=== PATIENT | female | born 1945 | race Caucasian/White ===

== ENCOUNTER 2017-06-09 20:17 | Emergency (ER) | payer MEDICARE ==
[2017-06-09] MEDS ORDERED: RX INFO: IV CONTRAST WAS GIVEN 1 EACH MISC MISCELLANE PRN (20:18)
[2017-06-09] MEDS ORDERED: SODIUM CHLORIDE 0.9% 1,000 ML IV STA ×2 (20:19)
[2017-06-09] MEDS ORDERED: levETIRAcetam IV 1,500 MG in SALINE 1 100ML.BAG IVPB STA (20:38)
[2017-06-09] MEDS ORDERED: LORazepam 2 MG/ML INJ IV STA ×3 (20:39→20:52)
[2017-06-09 20:46] LABS: Basophils % (A) 0 %; Eosinophils % (A) 0 %; HCT 36.8 % (34.0-46.0); HGB 11.5 gm/dL (11.4-16.0); Hypochromasia Slight; Lymphocytes # (A) 1.4 k/uL (1.0-4.8); Lymphocytes % (A) 19 %; MCH 31.3 pg (25.0-35.0); MCHC 31.1 g/dL (31.0-37.0); MCV 100.7 fL (80.0-100.0); Macrocytosis Slight; Mean Platelet Volume 8.3; Monocytes # (A) 0.5 k/uL (0-1.0); Monocytes % (A) 7 %; Neutrophils % (A) 71 %; Platelet Count 178 k/uL (150-450); RBC 3.66 m/uL (3.80-5.40); RDW 15.1 % (11.5-15.5); WBC 7.1 k/uL (3.8-10.6)
--- NOTE | 2017-06-09 20:51 | ED ---
General Adult HPI - General Chief complaint: Altered Mental Status Stated complaint: Seixure Time Seen by Provider: 06/09/17 20:18 Source: patient, RN notes reviewed, old records reviewed Mode of arrival: ambulatory Limitations: altered mental status, physical limitation - History of Present Illness Initial comments: This is a 71-year-old female the ER for evaluation, patient's primary by EMS, patient's of poor strain secondary current clinical condition. EMS was called the patient's house for possible seizure-like activity, and activity and stopped upon her arrival to the house, he also noted the patient had elevated blood sugar at home. Patient does her from diabetes currently on steroids. Patient does have recent hospital admission status post fall. - Related Data Home Medications Medication Instructions Recorded Confirmed Insulin Glargine [Lantus] 20 unit SQ BID 06/09/17 06/09/17 Metoprolol Tartrate [Lopressor] 25 mg PO TID 06/09/17 06/09/17 glipiZIDE [Glucotrol] 5 mg PO AC-BID 06/09/17 06/09/17 predniSONE See Taper PO DAILY 06/09/17 06/09/17 Review of Systems ROS Statement: Those systems with pertinent positive or pertinent negative responses have been documented in the HPI. ROS Other: All systems not noted in ROS Statement are negative. Past Medical History Past Medical History: Unable to Obtain, Atrial Fibrillation History of Any Multi-Drug Resistant Organisms: Unobtainable Past Surgical History: Unable to Obtain Past Psychological History: Unable to Obtain Smoking Status: Unknown if ever smoked Past Alcohol Use History: Unable to Obtain Past Drug Use History: Unable to Obtain General Exam - General Exam Comments Initial Comments: Patient actively seizing, left sided, simple partial, both of sided arm face, left-sided gaze, patient remains alert moaning answering following commands Limitations: altered mental status, physical limitation General appearance: alert, in no apparent distress Head exam: Present: atraumatic, normocephalic, normal inspection Eye exam: Present: normal appearance, PERRL, EOMI. Absent: scleral icterus, conjunctival injection, periorbital swelling ENT exam: Present: normal exam, mucous membranes moist Neck exam: Present: normal inspection. Absent: tenderness, meningismus, lymphadenopathy Respiratory exam: Present: normal lung sounds bilaterally. Absent: respiratory distress, wheezes, rales, rhonchi, stridor Cardiovascular Exam: Present: regular rate, normal rhythm, normal heart sounds. Absent: systolic murmur, diastolic murmur, rubs, gallop, clicks GI/Abdominal exam: Present: soft, normal bowel sounds. Absent: distended, tenderness, guarding, rebound, rigid Extremities exam: Present: normal inspection, full ROM, normal capillary refill. Absent: tenderness, pedal edema, joint swelling, calf tenderness Back exam: Present: normal inspection Neurological exam: Present: alert, oriented X3, CN II-XII intact Psychiatric exam: Present: normal affect, normal mood Skin exam: Present: warm, dry, intact, normal color. Absent: rash Course Vital Signs 06/09/17 06/09/17 06/09/17 20:21 20:28 20:37 Temperature 97.8 F Pulse Rate 184 H 174 H 189 H Respiratory 20 22 20 Rate Blood Pressure 143/80 163/124 167/89 O2 Sat by Pulse 97 98 96 Oximetry 06/09/17 06/09/17 20:43 20:53 Temperature Pulse Rate 98 128 H Respiratory 18 18 Rate Blood Pressure 143/60 97/70 O2 Sat by Pulse 98 99 Oximetry - Reevaluation(s) Reevaluation #1: 06/09/17 20:50 Patient given first dose of Ativan, 2 mg, second was 2 mg, continuing with simple partial seizures Reevaluation #2: 06/09/17 21:10 Patient's blood pressure is labile, no room for nimotoop EKG Findings - EKG Comments: EKG Findings:: EKG shows A. fib with RVR rate 126, QRS 72, QTc 444 Medical Decision Making - Medical Decision Making 71 female presented ER with simple partial status epilepticus, patient on Keppra given Ativan, significantly sedated on Ativan with mobile her labile blood pressure, patient given fluid bolus. Patient transferred to [facility] for further evaluation and management regarding positive subarachnoid hemorrhage - Lab Data Result diagrams: 06/09/17 20:30 06/09/17 20:30 Lab Results 06/09/17 06/09/17 06/09/17 Range/Units 20:30 20:30 20:44 WBC 7.1 (3.8-10.6) k/uL RBC 3.66 L (3.80-5.40) m/uL Hgb 11.5 (11.4-16.0) gm/dL Hct 36.8 (34.0-46.0) % MCV 100.7 H (80.0-100.0) fL MCH 31.3 (25.0-35.0) pg MCHC 31.1 (31.0-37.0) g/dL RDW 15.1 (11.5-15.5) % Plt Count 178 (150-450) k/uL Neutrophils % 71 % Lymphocytes % 19 % Monocytes % 7 % Eosinophils % 0 % Basophils % 0 % Neutrophils # 5.0 (1.3-7.7) k/uL Lymphocytes # 1.4 (1.0-4.8) k/uL Monocytes # 0.5 (0-1.0) k/uL Eosinophils # 0.0 (0-0.7) k/uL Basophils # 0.0 (0-0.2) k/uL Hypochromasia Slight Macrocytosis Slight Sodium 141 (137-145) mmol/L Potassium 5.0 (3.5-5.1) mmol/L Chloride 101 (98-107) mmol/L Carbon Dioxide 28 (22-30) mmol/L Anion Gap 12 mmol/L BUN 23 H (7-17) mg/dL Creatinine 1.00 (0.52-1.04) mg/dL Est GFR (CKD-EPI)AfAm 66 (>60 ml/min/1.73 sqM) Est GFR (CKD-EPI)NonAf 58 (>60 ml/min/1.73 sqM) Glucose 325 H (74-99) mg/dL Calcium 9.4 (8.4-10.2) mg/dL Phosphorus 3.7 (2.5-4.5) mg/dL Magnesium 2.0 (1.6-2.3) mg/dL Total Bilirubin 0.7 (0.2-1.3) mg/dL AST 32 (14-36) U/L ALT 37 (9-52) U/L Alkaline Phosphatase 108 (38-126) U/L Total Protein 6.4 (6.3-8.2) g/dL Albumin 3.4 L (3.5-5.0) g/dL Urine Color Light Yellow Urine Appearance Clear (Clear) Urine pH 6.5 (5.0-8.0) Ur Specific [place] 1.029 (1.001-1.035) Urine Protein Negative (Negative) Urine Glucose (UA) 4+ H (Negative) Urine Ketones Negative (Negative) Urine Blood Negative (Negative) Urine Nitrite Negative (Negative) Urine Bilirubin Negative (Negative) Urine Urobilinogen 2.0 (<2.0) mg/dL Ur Leukocyte Esterase Negative (Negative) - Radiology Data Radiology results: report reviewed (CTA negative no aneurysm, CT brain does show small subarachnoid hemorrhage), image reviewed Critical Care Time Critical Care Time: Yes (65) Disposition Clinical Impression: Simple partial seizure disorder, Status epilepticus, Subarachnoid hemorrhage, Atrial fibrillation with RVR Disposition: OTHER INSTITUTION NOT DEFINED Condition: Critical Referrals: None,Stated [Primary Care Provider] - 1-2 days - Out of Hospital Transfer - Req. Specs Out of Hospital Transfer - Requested Specifics: Other Emergency Center ([facility])
[2017-06-09 20:56] LABS: Prothrombin Time 10.1 sec (9.0-12.0)
[2017-06-09 20:57] VITALS: TEMP 97.8
[2017-06-09 20:58] VITALS: RESP 18
[2017-06-09 20:59] LABS: Appearance,Urine Clear (Clear); Bilirubin,Urine Negative (Negative); Blood,Urine Negative (Negative); Color,Urine Light Yellow; Glucose,Urine (UA) 4+ (Negative); Ketones,Urine Negative (Negative); Leukocyte Esterase,Urine Negative (Negative); Nitrite,Urine Negative (Negative); PH, Urine 6.5 (5.0-8.0); Protein,Urine Negative (Negative); Specific Gravity,Urine 1.029 (1.001-1.035)
[2017-06-09 20:59] LABS: Albumin 3.4 g/dL (3.5-5.0); Calcium 9.4 mg/dL (8.4-10.2); Phosphorus 3.7 mg/dL (2.5-4.5); Total Bilirubin 0.7 mg/dL (0.2-1.3); Total Protein 6.4 g/dL (6.3-8.2)
[2017-06-09 21:06] LABS: Creatine Kinase <20 U/L (30-135)
--- NOTE | 2017-06-09 21:06 | CT ---
EXAMINATION TYPE: CT angio head neck with contrast and with 3-D renderings. DATE OF EXAM: 06/09/2017 HISTORY: Neuro deficits. COMPARISON: NONE CT DLP: 524.9 mGycm. Automated Exposure Control for Dose Reduction was Utilized. TECHNIQUE: CTA scan of the neck is performed with IV Contrast, patient injected with 65ml mL of Omni paque 350, axial images are obtained, coronal and sagittal reformatted images are reviewed. Three-D r econstructed images are created on an independent workstation and reviewed. FINDINGS: There is patient motion artifact. The origins of the great vessels at the aortic arch are unremarkable. The bilateral carotid artery sy stems are both patent. Bilateral proximal ICA plaques are noted, but do not appear to be flow-limitin g. The bilateral vertebral artery systems are widely patent. Intracranial anterior arterial circulation is widely patent without focal findings. Similarly, intrac ranial vertebrobasilar posterior arterial circulation is widely patent without focal findings. The intracranial structures, visualized extracranial structures, soft tissues of the neck, and visual ized upper thorax are unremarkable. IMPRESSION: NO ACUTE PROCESS, FINDINGS ABOVE.
[2017-06-09 21:07] LABS: Partial Thromboplastin Time 20.4 sec (22.0-30.0)
--- NOTE | 2017-06-09 21:10 | CT ---
EXAMINATION: CT brain wo con DATE AND TIME: 06/09/2017 8:30 PM ORDERING PROVIDER: Syd Chavez DO CLINICAL INDICATION: pain tremors and unresponsive TECHNIQUE: Standard departmental protocol. COMPARISON: 05/07/2017 DESCRIPTION: There is streak artifact limiting accuracy to a mild-plus degree. There is subtle extra-axial high attenuation on axial images 25-29, located lateral to the right fron emilia lobe at the level of the body of the lateral ventricles. This focus measures 2 x 1 x 0.5 cm and i s consistent with focal subarachnoid/subdural intracranial hemorrhage until proven otherwise. The fin ding is also seen on coronal images 26 through 29. The overlying calvarium is negative for fracture. The remainder of the calvarium is intact. The remainder of the intracranial examination is negative for mass mass effect or definite new attenu ation defect. IMPRESSION: SUBTLE EXTRA-AXIAL INTRACRANIAL HEMORRHAGE; RESULTS DISCUSSED WITH ORDERING PHYSICIAN.
[2017-06-09] MEDS ORDERED: NOREPINEPHRIN 4 MG-0.9% NS PMX 4 MG/250 ML ML IV ONE (21:11)
--- NOTE | 2017-06-09 21:16 | XR ---
EXAMINATION: XR chest 1V portable DATE AND TIME: 06/09/2017 9:04 PM ORDERING PROVIDER: Syd Chavez DO CLINICAL INDICATION: ams TECHNIQUE: Portable AP upright COMPARISON: 05/11/2017 DESCRIPTION: The heart is moderately enlarged, stable compared to the prior study. There is moderate obscuration of the pulmonary vasculature bilaterally with obscuration of the pulmonary vasculature, c onsistent with interstitial phase pulmonary edema. No abnormal gas or fluid collections are evident. Bones and soft tissues unremarkable. IMPRESSION: INTERSTITIAL PHASE PULMONARY EDEMA, PRESUMABLY CARDIOGENIC ETIOLOGY.
[2017-06-09 21:20] LABS: Creatine Kinase MB 0.6 ng/mL (0.0-2.4); Troponin I <0.012 ng/mL (0.000-0.034)
[2017-06-09 21:24] VITALS: BP 104/56; PULSE 115
[2017-06-10 11:45] LABS: Glucose,Whole Blood 329 mg/dL (75-99)
== END 2017-06-09 21:30 | disposition other institution (70) ==
LOC: EC 20:17
DX: G40.101 Localization-related (focal) (partial) symptomatic epilepsy and epileptic syndromes with simple partial seizures, not intractable, with status epilepticus (principal); I48.91 Unspecified atrial fibrillation; I60.9 Nontraumatic subarachnoid hemorrhage, unspecified; Z79.4 Long term (current) use of insulin; Z79.52 Long term (current) use of systemic steroids; Z79.899 Other long term (current) drug therapy
CPT/HCPCS: 99291; 51702; 96374; 96375; 96361 ×2; 36415; 93005; 80053; 82550; 82553; 83735; 84100; 84484; 85025; 85610; 85730; 81003; 87086; 71045; 70496; 70450; 70498; J2060; Q9967; J1953

== ENCOUNTER → 2017-06-23 | Outpatient (CLI) | payer MEDICARE ==
--- NOTE | 2017-06-23 14:48 | XR ---
EXAMINATION TYPE: XR chest 2V DATE OF EXAM: 06/23/2017 COMPARISON: 06/09/2017 HISTORY: 71 year-old female hypertension and immune thrombocytopenia TECHNIQUE: Frontal and lateral views FINDINGS: Heart mildly enlarged. A discrete cartilage calcifications. Mild diffuse interstitial prominence show s improvement from prior. No consolidation or pleural effusion. IMPRESSION: Cardiomegaly. There may be mild pulmonary vascular congestion but the overall appearance is improved from 06/09/2017.
== END | disposition home or self-care (01) ==
LOC: RADXRMAIN 14:12
PROVIDERS: ATTEND Nurse Practitioner Adult Health
DX: I11.9 Hypertensive heart disease without heart failure (principal); I48.91 Unspecified atrial fibrillation; Z71.3 Dietary counseling and surveillance
CPT/HCPCS: 71046